=== PATIENT | male | born 1945 | race Caucasian/White ===

== ENCOUNTER → 2023-10-06 13:30 | Outpatient (REF) | payer OTHER, SELFPAY | LOC: MRI 3T 13:30 | PROVIDERS: ATTENDING PHYSICIAN Pain Medicine Interventional Pain Medicine; FAMILY PHYSICIAN Student in an Organized Health Care Education/Training Program | DX: M54.16 Radiculopathy, lumbar region (principal) | CPT/HCPCS: 72148 ==

== ENCOUNTER 2024-07-22 06:49 | Emergency (ER) | payer OTHER, SELFPAY ==
[2024-07-22 07:52] LABS: Hematocrit 41.1 % (39.0-52.0); Hemoglobin 15.1 g/dL (13.0-18.0); Mean Corp Hgb Conc. 36.7 g/dL (33.0-37.0); Mean Corpuscular Hgb 35.8 pg (27.0-31.0); Mean Corpuscular Volume 97.4 fL (80.0-94.0); Mean Platelet Volume 10.2 fL (7.4-10.4); Platelet Count 173 10^3/uL (130-400); Red Blood Cell Count 4.22 10^6/uL (4.70-6.10); Red Cell Dist. Width 12.1 % (11.5-14.5); White Blood Cell Count 8.9 10^3/uL (4.8-10.8)
[2024-07-22 08:11] LABS: ALT (SGPT) 22 U/L (0-50); AST (SGOT) 22 U/L (17-59); Albumin 4.2 g/dl (3.5-5.0); Alkaline Phosphatase 86 U/L (38-126); Blood Urea Nitrogen 19 mg/dl (9-20); Calcium 9.6 mg/dl (8.4-10.2); Carbon Dioxide 26 mmol/L (22-30); Chloride 103 mmol/L (98-107); Estimated Creatinine Clearance 91 ml/min; Glucose 175 mg/dl (70-99); Potassium 3.7 mmol/L (3.5-5.1); Sodium 139 mmol/L (135-145); Total Bilirubin 0.3 mg/dl (0.2-1.3); Total Protein 6.5 g/dl (6.3-8.2); eGFR > 60.00
[2024-07-22 08:18] LABS: NT-proBNP 518 pg/ml; Troponin I < 0.012 ng/ml
[2024-07-22] MEDS: APRESOLINE 50 MG PO (08:46)
[2024-07-22] MEDS: CARDIZEM CD 180 MG PO (08:46)
[2024-07-22 08:58] LABS: D-Dimer 0.51 ug/mlFEU (0.00-0.50)
--- NOTE | 2024-07-22 09:12 | ED.GENMED ---
History of Present Illness
General
Chief Complaint: Breathing Problem
Source: patient
Exam Limitations: none
Time Seen by Provider: 07/22/24 07:04
Nursing documentation reviewed up to this point in time: agreed with
History of Present Illness
History of Present Illness:
79-year-old male past medical history of hypertension presenting to the emergency department today with concerns of shortness of breath that he woke up with a few hours prior to arrival to the emergency department. Denies any chest pain numbness
weakness nausea vomiting any recent illnesses. Does have a history of smoking no specific history of COPD
Past History
Past History
ED Past Medical History: HTN and Other (Spinal stenosis with chronic back pain)
ED Past Surgical History: None
Patient has exhibited threatening behavior?: No
PSI?: No
Social History
Tobacco: Smoker
Alcohol: Occasional
Drug: Former user (Prescription narcotic drugs)
Living: alone
Family History
Family History: CAD and Other (Alcoholism)
Review of Systems
Review of Systems
Allergies reviewed?: Yes
All Other Systems: ROS reviewed and negative except as documented in HPI and ROS
Phy Exam
Physical Exam
Physical Exam:
GENERAL: Alert , in no apparent distress
EYE: pupils equal and reactive
NECK: Supple, no significant adenopathy.
ENT: o/p clr, mmm.
CARDIAC: Regular rate and rhythm .
LUNGS: Clear breath sounds bilaterally, no acute respiratory distress, no wheezes/rales/rhonchi
ABDOMEN: Soft, without focal tenderness, no r/g, no cvat
NEUROLOGICAL: Alert and oriented, no focal neuro deficits
SKIN: Warm and dry, skin intact.
MUSCULOSKELETAL: No edema, well perfused.
PSYCH: Normal and appropriate interaction.
Scores
Heart Failure Risk
Heart Failure Risk Score: Not Applicable
Course
Orders/Labs/Results
Orders:
Orders
07/22/24 07:02
EKG [Electrocardiogram (*1)] Urgent
Reason for Study: Shortness of Breath
EKG- Treatment ONCE
07/22/24 07:21
CR Chest - 2 Views Urgent
Comment:
Reason For Exam: sob
07/22/24 07:25
D-Dimer Urgent
07/22/24 07:33
BNP [NT-proBNP] Urgent
CMP [Comprehensive Metabolic Panel] Urgent
Complete Blood Count/No Diff Urgent
Troponin I Urgent
07/22/24 08:26
Diltiazem Extended Release [Cardizem Cd] 180 mg PO NOW STA
HydrALAZINE [Apresoline] 50 mg PO NOW STA
07/22/24 09:16
Ondansetron Injectable [Zofran] 4 mg IV NOW STA
07/22/24 09:39
EKG [Electrocardiogram (*1)] Urgent
Reason for Study: Palpitations
EKG- Treatment ONCE
07/22/24 09:50
Famotidine [Pepcid] 20 mg IV NOW STA
Mag Hydrox/Al Hydrox/Simeth [Maalox] 30 ml Phenobarb/Hyoscy/Atropine/Scop [] 10 ml PO NOW
Morphine Sulfate 8 mg IV NOW STA
07/22/24 10:13
Mag Hydrox/Al Hydrox/Simeth [Maalox] 30 ml .ROUTE .STK-MED ONE
Phenobarb/Hyoscy/Atropine/Scop [] 10 ml .ROUTE .STK-MED ONE
07/22/24 10:27
Troponin I Urgent
07/22/24 10:55
Vital Signs- Treatment ONCE
Frequency: Once
Abnormal Lab Results
07/22/24 07/22/24
07:25 07:33
RBC 4.22 L 10^6/uL
(4.70-6.10)
MCV 97.4 H fL
(80.0-94.0)
MCH 35.8 H pg
(27.0-31.0)
D-Dimer 0.51 H ug/mlFEU
(0.00-0.50)
Glucose 175 H mg/dl
(70-99)
07/22/24 07:33
07/22/24 07:33
Vital Signs
Initial and Last Documented VS:
Initial Vital Signs
Temp Pulse Resp BP Pulse Ox
97.3 F 66 20 116/85 99
07/22/24 06:51 07/22/24 06:51 07/22/24 06:51 07/22/24 06:51 07/22/24 06:51
Last Documented Vital Signs
Temp Pulse Resp BP Pulse Ox
97.4 F 74 20 167/62 98
07/22/24 11:52 07/22/24 11:52 07/22/24 11:52 07/22/24 11:52 07/22/24 11:52
MDM/Problems Addressed
MDM/Problems Addressed:
79-year-old male presenting to the emergency department today with concerns of shortness of breath started few hours prior to arrival. On arrival vital signs are normal patient slightly tachypneic but lungs are clear patient no distress otherwise.
EKG showing PACs but no emergent ischemic changes troponin negative chest x-ray without acute abnormalities D-dimer age-adjusted is normal labs unremarkable no specific explanation for patient's shortness of breath. Patient had complete resolution
of symptoms while here in the ER. Of note the patient's troponin level was drawn at least 3 hours after the onset of symptoms making ACS very unlikely and the troponin being reliable as a rule out for ACS. Patient did not have chest pain at any
point. While here the patient had some mild abdominal discomfort he was given Maalox and famotidine with complete resolution no reproducible abdominal pain at any point stable for outpatient management return precautions given.
*Critical Care Note
Total Time (30-74mins, 75-104mins- exclusive of procedures): Not Applicable
ED Attending Note
-
Portions of this chart may have been created with voice recognition software.� Occasional wrong word or��sound alike� substitutions may have occurred due to the inherent limitations of voice recognition software.
Discharge Plan
Departure
Patient Disposition: Home (Routine Discharge)
Date of Disposition: 07/22/24
Time of Disposition: 11:19
Patient with high blood pressure during this ER visit?: No
Condition: Good
Covid-19: Not Applicable
Discharge Problem:
Shortness of breath
Instructions: Shortness of Breath (Dyspnea) (DC)
Prescriptions:
No Action
latanoprost 0.005 % drops
1 drp BOTH EYES HS
cilostazol 50 mg tablet
50 mg PO BID
finasteride 1 mg tablet
1 mg PO DAILY
vitamin E 100 unit Capsule
45 mg PO DAILY
lansoprazole 15 mg Capsule,Delayed Release(Dr/Ec)
15 mg PO DAILY
ibuprofen [Motrin IB] 200 mg Tablet
400 mg PO Q8HPRN PRN (Reason: mild pain)
vitamin B complex Capsule
1 cap PO DAILY
wh-ynn-YQ-Dr-Xg-flgcyba-lutein 0.4-162-18 mg Tablet
1 tab PO DAILY
cholecalciferol (vitamin D3) [Vitamin D3] 25 mcg (1,000 unit) Tablet
25 mcg PO DAILY
omega 3-zge-pnl-fish oil [Fish Oil] 60-90-500 mg Capsule
1 cap PO DAILY
oxycodone [OxyContin] 10 mg tablet,oral only,ext.rel.12 hr
10 mg PO Q12 Qty: 30 0RF
oxycodone 5 mg capsule
5 mg PO QID PRN (Reason: Pain) Qty: 60 0RF
hydralazine 25 mg Tablet
50 mg PO BID 30 Days Qty: 120 0RF
Rx Instructions:
hold if Systolic blood pressure is less than 140
diltiazem HCl 180 mg Capsule,Extended Release 24hr
180 mg PO DAILY 30 Days Qty: 30 0RF
lisinopril 5 mg Tablet
5 mg PO HS 30 Days Qty: 30 0RF
oxycodone 10 mg tablet
10 mg PO Q6H Qty: 8 0RF
ondansetron HCl 4 mg tablet
4 mg PO Q8H PRN (Reason: nausea and vomiting) Qty: 14 0RF
Referrals:
Jayden Hillman, DO [Family Provider] -
Activity Restrictions/Additional Instructions:
You came to the emergency department today with concerns of shortness of breath. Here your reassuring assessment. Please follow closely with your primary care doctor within 1 to 2 weeks. Return to the emergency department any worsening, new or
concerning symptoms.
Interventions
Interventions:
*Risk Screen - Suicide Last Done: 07/22/24 06:51
*General Assessment Last Done: 07/22/24 07:16
*Neglect/Abuse Screening Last Done: 07/22/24 07:20
ED- Fall Risk Assessment Last Done: 07/22/24 07:16
*ED COVID-19 Vaccine History Last Done: 07/22/24 07:31
*Nursing Disposition Last Done: 07/22/24 11:52
ED- Cardiac Assessment Last Done: 07/22/24 07:16
ED- Pulmonary Assessment Last Done: 07/22/24 07:16
Discharge Date and Time
Discharge Date/Time: 07/22/24 11:53
Print Language: BERMUDIAN
[2024-07-22] MEDS: ZOFRAN 4 MG IV (09:19)
[2024-07-22] MEDS: MAALOX 40 PO (10:18)
[2024-07-22] MEDS: PEPCID 20 MG IV (10:19)
[2024-07-22] MEDS: MORPHINE SULFATE 8 MG IV (10:19)
[2024-07-22 11:11] LABS: Troponin I < 0.012 ng/ml
--- NOTE | 2024-07-22 11:51 | EDRN ---
Reviewed discharge instructions with patient. Verbalized understanding. Taken to lobby in wheelchair.
== END 2024-07-22 11:53 | disposition home or self-care (01) ==
LOC: EMR 06:49
PROVIDERS: Physician Assistant; EMERGENCY PHYSICIAN Emergency Medicine; FAMILY PHYSICIAN Student in an Organized Health Care Education/Training Program
DX: R06.02 Shortness of breath (principal); F17.200 Nicotine dependence, unspecified, uncomplicated
CPT/HCPCS: 99285; 96374; 96375 ×2; 71046; 80053; 83880; 84484; 85027; 85379; 93005

== ENCOUNTER → 2024-07-28 07:32 | Outpatient (REF) | payer OTHER, SELFPAY | LOC: RAD 07:32 | PROVIDERS: ATTENDING PHYSICIAN Surgery Vascular Surgery; FAMILY PHYSICIAN Student in an Organized Health Care Education/Training Program | DX: I73.9 Peripheral vascular disease, unspecified (principal) | CPT/HCPCS: 93922; 93925 ==

== ENCOUNTER 2024-08-08 14:09 | Emergency (ER) | payer OTHER, SELFPAY ==
[2024-08-08 14:36] VITALS: BP 220/82
[2024-08-08 15:09] LABS: % Basophils 0.3 % (0-2); % Eosinophils 0.1 % (0-6); % Immature Granulocytes 0.3 % (0-0.5); % Monocytes 2.5 % (1.7-9.3); % Neutrophils 95.8 % (42.2-75.2); Absolute Basophils 0.1 10^3/uL (0-0.2); Absolute Immature Granulocytes 0.1 10^3/uL (0-0.05); Absolute Lymphocytes 0.1 10^3/uL (1.2-3.4); Absolute Monocytes 0.4 10^3/uL (0.1-0.6); Absolute Neutrophils 13.9 10^3/uL (1.4-6.5); Hemoglobin 16.5 g/dL (13.0-18.0); Mean Corp Hgb Conc. 36.7 g/dL (33.0-37.0); Mean Corpuscular Hgb 35.3 pg (27.0-31.0); Mean Corpuscular Volume 96.2 fL (80.0-94.0); Mean Platelet Volume 10.4 fL (7.4-10.4); Nucleated Red Blood Cells % 0 % (-); Platelet Count 205 10^3/uL (130-400); Red Blood Cell Count 4.68 10^6/uL (4.70-6.10); Red Cell Dist. Width 11.9 % (11.5-14.5); White Blood Cell Count 14.5 10^3/uL (4.8-10.8)
[2024-08-08 15:22] LABS: ALT (SGPT) 26 U/L (0-50); AST (SGOT) 27 U/L (17-59); Albumin 4.7 g/dl (3.5-5.0); Alkaline Phosphatase 105 U/L (38-126); Blood Urea Nitrogen 21 mg/dl (9-20); Calcium 10.2 mg/dl (8.4-10.2); Carbon Dioxide 24 mmol/L (22-30); Chloride 100 mmol/L (98-107); Glucose 180 mg/dl (70-99); Lipase 56 U/L (23-300); Potassium 3.8 mmol/L (3.5-5.1); Sodium 136 mmol/L (135-145); Total Bilirubin 1.1 mg/dl (0.2-1.3); Total Protein 7.2 g/dl (6.3-8.2); eGFR > 60.00
--- NOTE | 2024-08-08 16:25 | ED.GENMED ---
History of Present Illness
General
Chief Complaint: Abdominal Symptoms
Source: patient and family
Time Seen by Provider: 08/08/24 16:13
History of Present Illness
History of Present Illness:
79-year-old male with past medical history of hypertension and chronic back pain presenting to the emergency department for evaluation of persistent nausea and vomiting all day today, family reports that he had some diarrhea about 3 days ago but
this is since resolved. No fevers or infectious symptoms but patient does endorse diffuse generalized abdominal pain currently a 10 out of 10. No relief with his chronic oxycodone and he did take a Pepto-Bismol earlier this morning but reports
vomiting this back up shortly thereafter. Family reports that patient is scheduled to have consultation with GI for an endoscopy at the end of August for chronic abdominal pain symptoms but due to the inability to tolerate p.o. today decided come
to the ER for further evaluation.
Past History
Past History
ED Past Medical History: HTN and Other (Spinal stenosis with chronic back pain)
ED Past Surgical History: None
Patient has exhibited threatening behavior?: No
PSI?: No
Social History
Tobacco: Smoker
Alcohol: Occasional
Drug: Former user (Prescription narcotic drugs)
Living: alone
Family History
Family History: CAD and Other (Alcoholism)
Review of Systems
Review of Systems
All Other Systems: ROS reviewed and negative except as documented in HPI and ROS
Phy Exam
Physical Exam
Physical Exam:
GENERAL: Alert , in no apparent distress but does appear uncomfortable
EYE: clear conjunctiva b/l
HEAD: NCAT
ENT: o/p clr, dry mucous membranes
CARDIAC: Regular rate and rhythm .
LUNGS: Clear breath sounds bilaterally, no acute respiratory distress, no wheezes/rales/rhonchi
ABDOMEN: Soft, generally tender but nothing focal, no r/g, no cvat, negative Verdin sign, no tenderness at McBurney's point
NEUROLOGICAL: Alert and oriented
SKIN: Warm and dry, skin intact.
MUSCULOSKELETAL: No edema, well perfused.
PSYCH: Normal and appropriate interaction.
Scores
Heart Failure Risk
Heart Failure Risk Score: Not Applicable
Heart Score for Chest Pain Patients
STEMI patient?: Not applicable
Withdrawal Assessment of Alcohol
Withdrawal Assessment Completed?: Not applicable
Course
Orders/Labs/Results
Orders:
Orders
08/08/24 14:51
Complete Blood Count/With Diff Urgent
Comprehensive Metabolic Panel Urgent
Lipase Urgent
08/08/24 16:24
0.9% Sodium Chloride 1000 ml [Nss] 1,000 ml IV BOLUS
Morphine Sulfate 4 mg IV NOW STA
Ondansetron Injectable [Zofran] 4 mg IV NOW STA
08/08/24 16:25
CT Abd/pelvis W Iv Cont Urgent
Comment:
Reason For Exam: generalized abd pain, vomiting
08/08/24 19:32
HYDROmorphone [Dilaudid] 0.5 mg IV NOW STA
Abnormal Lab Results
08/08/24
14:51
WBC 14.5 H 10^3/uL
(4.8-10.8)
RBC 4.68 L 10^6/uL
(4.70-6.10)
MCV 96.2 H fL
(80.0-94.0)
MCH 35.3 H pg
(27.0-31.0)
Abs Immat Gran (auto) 0.1 H 10^3/uL
(0-0.05)
Absolute Neuts (auto) 13.9 H 10^3/uL
(1.4-6.5)
Absolute Lymphs (auto) 0.1 L 10^3/uL
(1.2-3.4)
Neutrophils % 95.8 H %
(42.2-75.2)
Lymphocytes % 1.0 L %
(20.5-51.1)
BUN 21 H mg/dl
(9-20)
Glucose 180 H mg/dl
(70-99)
08/08/24 14:51
08/08/24 14:51
Vital Signs
Initial and Last Documented VS:
Initial Vital Signs
Temp Pulse Resp BP Pulse Ox
98.3 F 65 20 220/82 100
08/08/24 14:36 08/08/24 14:36 08/08/24 14:36 08/08/24 14:36 08/08/24 14:36
Last Documented Vital Signs
Temp Pulse Resp BP Pulse Ox
98.3 F 67 16 195/85 99
08/08/24 14:36 08/08/24 21:00 08/08/24 21:00 08/08/24 21:00 08/08/24 21:00
MDM/Problems Addressed
Differential Diagnosis Includes:
Appendicitis, cholecystitis, pancreatitis, gastritis/GERD, gastroenteritis, chronic pain syndrome/opiate withdrawal
MDM/Problems Addressed:
79-year-old male presenting the ER for evaluation of generalized abdominal pain with persistent nausea and vomiting. Unable to tolerate p.o. at home. Appears quite uncomfortable. Currently undergoing workup with GI for these chronic GI related
issues. No recent CT imaging of the abdomen or pelvis. Currently hypertensive. Labs done in triage show a leukocytosis of 14,000. Chemistry largely unremarkable. Will obtain CT scan for further evaluation. Pain control with morphine, Zofran
for nausea and IV fluids ordered.
*Radiology
Radiology exam reviewed: radiology read reviewed
*Pulse Oximetry
Patient hypoxic: no
*Critical Care Note
Total Time (30-74mins, 75-104mins- exclusive of procedures): Not Applicable
Data Reviewed
Review of Other/Old Records Reveals: Labs, Records and Radiology Studies
Source: patient, records and family
Comment
Comment:
6:23 PM: On reevaluation patient sleeping and noting symptoms are much improved. Awaiting CT imaging.
Patient Management
Social determinants of health affecting care: Living situation and Strong social support
Discussion with other providers: PCP and [facility] Hanger
Escalation/DeEscalation of care consider admission/obs:
Patient CT scan findings noted for gastritis which had a similar appearance to CT scan done in 2022. There was also an incidental finding of a pancreatic mass measuring about 12 mm. I provided the patient and family with printout of CAT scan
report and advised them that they would likely need further follow-up with CT imaging of the pancreas as well as a possible MRI. Other findings do not seem to be consistent with patient's presentation. Patient feeling much better following the
medications provided here and both he and family feel comfortable taking him home. Due to these findings and patient's follow-up not being for over 1 month I did notify the GI lockstitch front edge tape sewer staff as well as on-call GI provider and patient's primary
care provider about these findings to help expedite outpatient follow-up. Patient and family aware of return precautions to the ER.
ED Attending Note
-
Portions of this chart may have been created with voice recognition software.� Occasional wrong word or��sound alike� substitutions may have occurred due to the inherent limitations of voice recognition software.
Discharge Plan
Departure
Patient Disposition: Home (Routine Discharge)
Date of Disposition: 08/08/24
Time of Disposition: 20:54
Patient with high blood pressure during this ER visit?: Yes
Discharge Problem:
Abdominal pain, Nausea & vomiting, Gastritis, Pancreatic mass
Instructions: Abdominal Pain
Prescriptions:
New
sucralfate [Carafate] 100 mg/mL suspension
10 ml PO QID Qty: 1000 0RF
ondansetron 4 mg tablet,disintegrating
4 mg PO TIDPRN PRN (Reason: nausea/vomiting) Qty: 10 0RF
No Action
latanoprost 0.005 % drops
1 drp BOTH EYES HS
cilostazol 50 mg tablet
50 mg PO BID
finasteride 1 mg tablet
1 mg PO DAILY
vitamin E 100 unit Capsule
45 mg PO DAILY
lansoprazole 15 mg Capsule,Delayed Release(Dr/Ec)
15 mg PO DAILY
ibuprofen [Motrin IB] 200 mg Tablet
400 mg PO Q8HPRN PRN (Reason: mild pain)
vitamin B complex Capsule
1 cap PO DAILY
ce-byl-NN-Ir-Wg-szugoig-lutein 0.4-162-18 mg Tablet
1 tab PO DAILY
cholecalciferol (vitamin D3) [Vitamin D3] 25 mcg (1,000 unit) Tablet
25 mcg PO DAILY
omega 2-gay-otu-fish oil [Fish Oil] 60-90-500 mg Capsule
1 cap PO DAILY
oxycodone [OxyContin] 10 mg tablet,oral only,ext.rel.12 hr
10 mg PO Q12 Qty: 30 0RF
oxycodone 5 mg capsule
5 mg PO QID PRN (Reason: Pain) Qty: 60 0RF
hydralazine 25 mg Tablet
50 mg PO BID 30 Days Qty: 120 0RF
Rx Instructions:
hold if Systolic blood pressure is less than 140
diltiazem HCl 180 mg Capsule,Extended Release 24hr
180 mg PO DAILY 30 Days Qty: 30 0RF
lisinopril 5 mg Tablet
5 mg PO HS 30 Days Qty: 30 0RF
oxycodone 10 mg tablet
10 mg PO Q6H Qty: 8 0RF
ondansetron HCl 4 mg tablet
4 mg PO Q8H PRN (Reason: nausea and vomiting) Qty: 14 0RF
Referrals:
Jayden Hillman DO [Family Provider] -
Interventions
Interventions:
*Risk Screen - Suicide Last Done: 08/08/24 14:36
*General Assessment Last Done: 08/08/24 14:36
*Neglect/Abuse Screening Last Done: 08/08/24 14:36
ED- Fall Risk Assessment Last Done: 08/08/24 19:15
*Nursing Disposition Last Done: 08/08/24 21:07
GQ-Fcxqqi-Bhtcfdqcfe Assessment Last Done: 08/08/24 19:15
Discharge Date and Time
Print Language: LIBERIAN
[2024-08-08] MEDS: ZOFRAN 4 MG IV (16:44)
[2024-08-08] MEDS: NSS 1000 IV (16:44)
[2024-08-08] MEDS: MORPHINE SULFATE 4 MG IV (16:45)
[2024-08-08] MEDS: DILAUDID 0.5 MG IV (20:03)
[2024-08-08 21:00] VITALS: BP 195/85
== END 2024-08-08 21:07 | disposition home or self-care (01) ==
LOC: EMR 14:09
PROVIDERS: Emergency Medicine; EMERGENCY PHYSICIAN Student in an Organized Health Care Education/Training Program; FAMILY PHYSICIAN Student in an Organized Health Care Education/Training Program
DX: K29.70 Gastritis, unspecified, without bleeding (principal); K86.9 Disease of pancreas, unspecified; I10 Essential (primary) hypertension; F17.200 Nicotine dependence, unspecified, uncomplicated
CPT/HCPCS: 96374; 96375; 99284; 74177; 80053; 83690; 85025; Q9967

== ENCOUNTER → 2024-08-16 16:41 | Outpatient (REF) | payer OTHER, SELFPAY | LOC: MRI 3T 16:41 | PROVIDERS: ATTENDING PHYSICIAN Student in an Organized Health Care Education/Training Program | DX: K86.89 Other specified diseases of pancreas (principal) | CPT/HCPCS: 74183; A9575 ==

== ENCOUNTER 2024-08-18 06:24 | Day surgery (SDC) | payer OTHER, SELFPAY | END 2024-08-18 09:34 | disposition home or self-care (01) | LOC: GI 06:24 | PROVIDERS: ATTENDING PHYSICIAN Internal Medicine Gastroenterology; FAMILY PHYSICIAN Podiatrist Foot Surgery | DX: R12 Heartburn (principal); K22.89 Other specified disease of esophagus; K31.89 Other diseases of stomach and duodenum | CPT/HCPCS: 43239; 87220 ==

== ENCOUNTER 2024-08-26 09:29 | Outpatient (RCR) | payer OTHER, SELFPAY | END 2024-08-26 23:59 | disposition home or self-care (01) | LOC: ROT 09:29 | PROVIDERS: ATTENDING PHYSICIAN Student in an Organized Health Care Education/Training Program | DX: K86.89 Other specified diseases of pancreas (principal); R53.1 Weakness; Z73.6 Limitation of activities due to disability; R26.89 Other abnormalities of gait and mobility; R41.89 Other symptoms and signs involving cognitive functions and awareness | CPT/HCPCS: 88305; 88342; 97167 ==

== ENCOUNTER 2024-08-31 06:18 | Day surgery (SDC) | payer OTHER, SELFPAY | END 2024-08-31 14:14 | disposition home or self-care (01) | LOC: GI 06:18 | PROVIDERS: ATTENDING PHYSICIAN Internal Medicine Gastroenterology | DX: Z12.11 Encounter for screening for malignant neoplasm of colon (principal); K59.00 Constipation, unspecified; K64.8 Other hemorrhoids; K57.30 Diverticulosis of large intestine without perforation or abscess without bleeding; K63.5 Polyp of colon; R12 Heartburn; R11.2 Nausea with vomiting, unspecified; K31.89 Other diseases of stomach and duodenum | CPT/HCPCS: 45380; 43239; 88305; 88342 ==

== ENCOUNTER 2024-09-23 06:30 | Day surgery (SDC) | payer OTHER, SELFPAY ==
[2024-09-23] VITALS (9 sets, daily range): BP systolic 128–181; BP diastolic 71–92; BMI 23.3
--- NOTE | 2024-09-23 14:17 | SUR.PHASEI ---
1400: Pt. arrived to PACU tremulous, shaky, and restless. Pt. agitated and confused trying to hit staff. Pt. was given 50mcg of fent. by CHAPARRITA Alaniz and pt. seem to calm down. Pt. is a poor historian that reported to the nurse he had a drink last
night. Pt. also endorses taking 10mg of oxycodone at home four times a day for the past ten years for back pain. Patient Vitals are stable for patients normal limits. 1410: Pt. tremors have resolved and is not agitated any more, pt. is AAOx3 with no
complaints of nausea or pain. Pt. endorses that he hasnt had a ETOH drink in the last three years and that he feels similar to when he misses a dose of oxycodone. Pt. now HTN. MD Ceron contact for plan of care and disposition
== END 2024-09-23 15:37 | disposition home or self-care (01) ==
LOC: SDS 06:30
PROVIDERS: ATTENDING PHYSICIAN Internal Medicine Gastroenterology
DX: K86.89 Other specified diseases of pancreas (principal); K83.8 Other specified diseases of biliary tract
CPT/HCPCS: 43242; 88172; 88173; 88305; 88177; 88341; 88342

== ENCOUNTER → 2025-01-17 10:38 | Outpatient (REF) | payer OTHER, SELFPAY | LOC: RAD 10:38 | PROVIDERS: ATTENDING PHYSICIAN Surgery Vascular Surgery; FAMILY PHYSICIAN Student in an Organized Health Care Education/Training Program | DX: I73.9 Peripheral vascular disease, unspecified (principal) | CPT/HCPCS: 93922; 93925 ==

== ENCOUNTER 2025-02-03 07:48 | Day surgery (SDC) | payer OTHER, SELFPAY ==
[2025-02-03] VITALS (18 sets, daily range): BP systolic 132–186; BP diastolic 43–76; BMI 24.7
[2025-02-03] MEDS: NSS 500 IV (08:15)
[2025-02-03 08:25] LABS: Hematocrit 44.5 % (39.0-52.0); Hemoglobin 15.6 g/dL (13.0-18.0); Mean Corp Hgb Conc. 35.1 g/dL (33.0-37.0); Mean Corpuscular Volume 96.9 fL (80.0-94.0); Mean Platelet Volume 9.9 fL (7.4-10.4); Platelet Count 160 10^3/uL (130-400); Red Blood Cell Count 4.59 10^6/uL (4.70-6.10); Red Cell Dist. Width 13.1 % (11.5-14.5); White Blood Cell Count 7.8 10^3/uL (4.8-10.8)
[2025-02-03 08:35] LABS: INR 0.97; PT 13.2 Sec (11.4-14.6)
[2025-02-03 08:45] LABS: Blood Urea Nitrogen 18 mg/dl (9-20); Calcium 9.7 mg/dl (8.4-10.2); Carbon Dioxide 24 mmol/L (22-30); Chloride 110 mmol/L (98-107); Estimated Creatinine Clearance 62 ml/min; Glucose 134 mg/dl (70-99); Potassium 3.9 mmol/L (3.5-5.1); Sodium 141 mmol/L (135-145); eGFR > 60.00
--- NOTE | 2025-02-03 09:43 | W.SUR.PREOP ---
Pre-Operative Surgical Note
-
I have examined this patient prior to the performance of the scheduled procedure.
The patient's condition is unchanged from the time of the current History and
Physical and the patient is able to undergo the scheduled procedure.
--- NOTE | 2025-02-03 11:36 | W.SUR.POST ---
Surgical Immediate Post Op
Note
Pre Op Diagnosis: PAD
Post Op Diagnosis: Same
Procedure Performed: BL lower extremity diagnostic arteriogram
Primary Surgeon: Jose Francisco
Secondary Surgeons: Alvin PGY 5
Anesthesia: Local and sedation
Estimated Blood Loss: Less than 2 cc
Fluids: See anesthesia flowsheet
Drains/Shunts: None
Specimens/Cultures: None
Doppler/Duplex/Angio (Y/N): Y
Complications: None
Operative Findings: Unable to cross lesion, no endovascular option
[2025-02-03] MEDS: DILAUDID 0.5 MG IV ×2 (12:18→12:30)
[2025-02-03] MEDS: ASPIRIN 325 MG PO (13:30)
[2025-02-03] MEDS: NSS 1000 IV (13:30)
[2025-02-03] MEDS: ROXICODONE 10 MG PO (13:57)
--- NOTE | 2025-02-03 16:54 | OR.RPT ---
Operative Report
Operative Report
Date of Operation: 02/03/2025
Pre Op Diagnosis: Bilateral limb threatening ischemia with ischemic rest pain
Post Op Diagnosis: Bilateral limb threatening ischemia with ischemic rest pain
Procedure:
1.) Selective catheterization of third order lower extremity artery
2.) Diagnostic aortobiiliac arteriogram
3.) Diagnostic BILATERAL lower extremity arteriograms
4.) Ultrasound-guided percutaneous access to the left common femoral artery
Surgeon: Delvin Felton III, MD
[place] [employer] Laborer: Mikel Esquivel MD, PGY5
Anesthesia: Sedation with local
Fluoroscopy:
42.3 min
202 mGy
39.38 gy.cm2
Complications: None
Estimated Blood Loss: Less than 20 cc
History and Indications for Procedure: 79-year-old male with bilateral limb threatening ischemia manifested by ischemic rest pain in his feet, right greater than left
Procedure in Detail: Edgardo Gardiner was correctly identified and placed supine on the operating table. After adequate induction of anesthesia the bilateral groins were prepped and draped in the usual sterile fashion. A timeout was performed with the
nursing and anesthesia staff confirming the patient's identity as well as the nature and laterality of the procedure.
The left common femoral artery was identified under ultrasound guidance. The artery was patent. The superior and inferior aspects of the femoral head were identified with radiographic guidance and marked at the skin level. The proposed puncture site
was infiltrated with local anesthesia. Under ultrasound guidance we accessed the left common femoral artery with a micropuncture needle and upsized to a 5 Fr sheath over a Bentson wire. The wire and a ShepherInflaRx hook flush catheter were advanced into
the distal abdominal aorta and a diagnostic aorto-biiliac arteriogram was performed:
AORTO-ILIAC ARTERIOGRAM:
Aorta: Patent with no stenosis identified
Right common iliac artery: Patent with no stenosis identified
Right external iliac artery: Patent with no stenosis identified
Left common iliac artery: Patent with no stenosis identified
Left external iliac artery: Patent with no stenosis identified
Under roadmap guidance using a Glidewire and the ShepherInflaRx hook catheter we selected the right common iliac artery and then the external iliac artery. A catheter was tracked up and over the aortic bifurcation and placed in the distal external iliac
artery. A diagnostic right lower extremity arteriogram was then performed which demonstrated the following:
RIGHT LOWER EXTREMITY:
Common femoral artery: Patent with no stenosis identified
Profunda femoral artery: Patent with no stenosis identified
Superficial femoral artery: Very short patent stump, nearly flush occluded. Occluded thereafter.
Popliteal artery: Reconstitutes above the knee. Above-knee popliteal artery with calcified plaque but no significant stenosis identified. Patent behind and below the knee without significant stenosis
Anterior tibial artery: Occluded
Tibioperoneal trunk: Patent
Peroneal artery: Patent as the dominant tibial artery
Posterior tibial artery: Appears to have a high takeoff from the popliteal artery behind the knee. Sluggish flow compared to the peroneal artery. Appears to have distal occlusion proximal to the ankle.
Limited flow was identified on initial images into the foot.
ENDOVASCULAR INTERVENTION: Systemic heparin was administered. Exchanged out for a 6 Fr 45 cm sheath over a Storq wire. Selected the superficial femoral artery stump under roadmap guidance with a 0.014 Mongo wire Quickcross catheter and using this
approach we were able to navigate distally through the superficial femoral artery. I was able to advance the 0.014 system to the distal superficial femoral artery but met significant resistance distally. I then exchanged out for a 0.035 Quickcross
and 0.035 stiff Glidewire. I was able to advance further distally up to the point of reconstitution of the above-knee popliteal artery. Unfortunately I was not able to reenter into the true lumen. Multiple attempts were made using the 0.035
Quickcross along with a standard Glidewire as well as the stiff Glidewire. We also made attempts using the 0.014 system with multiple 0.014 wires but were completely unsuccessful at reentering the true lumen distally.
At this point I aborted additional attempts to cross the right SFA occlusion. The sheath tip was pulled back into the left external iliac artery. The sheath was secured in place with the plan to pull it in the recovery area. We performed a runoff
arteriogram of the left lower extremity which demonstrated the following:
LEFT LOWER EXTREMITY:
Common femoral artery: Patent with no significant stenosis identified
Profunda femoral artery: Patent with no significant stenosis identified. Robust collateral branches in the thigh
Superficial femoral artery: Very short stump of patent SFA but occluded thereafter.
Popliteal artery: Reconstitutes above the knee. Patent. Calcified plaque is present. Patent behind the knee and below the knee with no significant stenosis identified.
Anterior tibial artery: Patent
Tibioperoneal trunk: Patent
Peroneal artery: Patent
Posterior tibial artery: Patent but diffusely stenotic/diminutive throughout.
Satisfied with this diagnostic information we concluded the procedure.
The patient tolerated the procedure well and was taken to the recovery area in stable condition.
Attestation: I was present and responsible for the entire procedure.
Signed:
Delvin Felton III, MD
Vascular Surgery
[facility]
== END 2025-02-03 17:10 | disposition home or self-care (01) ==
LOC: CATH 07:48
PROVIDERS: ATTENDING PHYSICIAN Surgery Vascular Surgery; PRIMARYCARE PHYSICIAN Student in an Organized Health Care Education/Training Program
DX: I70.223 Atherosclerosis of native arteries of extremities with rest pain, bilateral legs (principal); Z87.891 Personal history of nicotine dependence; I10 Essential (primary) hypertension; G89.29 Other chronic pain
CPT/HCPCS: 36247; 75716; 75625; 80048; 85027; 85610; 85730; 93005; 93970; C1769; C1894; Q9967

== ENCOUNTER → 2025-03-13 11:36 | Outpatient (REF) | payer OTHER, SELFPAY | LOC: RCS 11:36 | PROVIDERS: ATTENDING PHYSICIAN Internal Medicine Cardiovascular Disease; FAMILY PHYSICIAN Student in an Organized Health Care Education/Training Program | DX: I45.10 Unspecified right bundle-branch block (principal) | CPT/HCPCS: 78452; 93017; A9500; J2785 ==

== ENCOUNTER → 2025-03-23 13:24 | Outpatient (REF) | payer OTHER, SELFPAY | LOC: RCS 13:24 | PROVIDERS: ATTENDING PHYSICIAN Internal Medicine Cardiovascular Disease; FAMILY PHYSICIAN Student in an Organized Health Care Education/Training Program | DX: I45.10 Unspecified right bundle-branch block (principal) | CPT/HCPCS: 93306 ==

== ENCOUNTER → 2025-03-30 11:04 | Outpatient (REF) | payer OTHER, SELFPAY | LOC: RAD 11:04 | PROVIDERS: ATTENDING PHYSICIAN Surgery Vascular Surgery; FAMILY PHYSICIAN Student in an Organized Health Care Education/Training Program | DX: I73.9 Peripheral vascular disease, unspecified (principal) | CPT/HCPCS: 93970 ==

== ENCOUNTER 2025-04-10 08:43 | Inpatient (IN) | payer OTHER, SELFPAY ==
[2025-03-30 10:10] VITALS: BMI 24.9
[2025-03-30 10:32] LABS: Hematocrit 44.5 % (39.0-52.0); Hemoglobin 15.1 g/dL (13.0-18.0); Mean Corp Hgb Conc. 33.9 g/dL (33.0-37.0); Mean Corpuscular Volume 98.9 fL (80.0-94.0); Nucleated Red Blood Cells % 0 % (-); Platelet Count 158 10^3/uL (130-400); Red Cell Dist. Width 12.7 % (11.5-14.5)
[2025-03-30 10:40] LABS: INR 0.96; PT 13.3 Sec (11.4-14.6)
[2025-03-30 10:41] LABS: APTT 25.2 Sec (23.4-35.0)
[2025-03-30 11:09] LABS: Blood Urea Nitrogen 21 mg/dl (9-20); Calcium 9.8 mg/dl (8.4-10.2); Carbon Dioxide 29 mmol/L (22-30); Chloride 101 mmol/L (98-107); Estimated Creatinine Clearance 64 ml/min; Glucose 127 mg/dl (70-99); Potassium 5.0 mmol/L (3.5-5.1); Sodium 140 mmol/L (135-145); eGFR > 60.00
[2025-04-10] VITALS (29 sets, daily range): BP systolic 100–169; BP diastolic 52–104; BMI 24.8; BMI 24.7
[2025-04-10] MEDS: BACTROBAN NASAL 1 GRAM NASAL (09:24)
[2025-04-10] MEDS: PERIDEX 0.12% ORAL RINSE 15 ML PO (09:24)
[2025-04-10] MEDS: NSS 500 IV (09:25)
[2025-04-10] MEDS: VANCOCIN 200 IV (10:10)
[2025-04-10 12:30] LABS: ACT-LR - POC 311 Seconds (116-155)
[2025-04-10 13:20] LABS: ACT-LR - POC 253 Seconds (116-155)
--- NOTE | 2025-04-10 14:17 | W.SUR.POST ---
Surgical Immediate Post Op
Note
Pre Op Diagnosis: PAD
Post Op Diagnosis: PAD
Procedure Performed: RLE Fem-Pop bypass
Primary Surgeon: Delvin Felton MD
Secondary Surgeons: Ben Doran MD PhD
Anesthesia: Per Anesthesia
Estimated Blood Loss: 50 cc
Fluids: Per Anesthesia
Drains/Shunts: None
Specimens/Cultures: None
Doppler/Duplex/Angio (Y/N): Doppler intact
Complications: None
Operative Findings: RLE common femoral to above knee popliteal bypass with graft (PTFE). Palpable PT pulse post-operatively.
[2025-04-10 14:19] LABS: Hematocrit 40.5 % (39.0-52.0); Hemoglobin 13.7 g/dL (13.0-18.0); Mean Corp Hgb Conc. 33.8 g/dL (33.0-37.0); Mean Corpuscular Volume 98.5 fL (80.0-94.0); Platelet Count 185 10^3/uL (130-400); Red Cell Dist. Width 12.6 % (11.5-14.5)
[2025-04-10] MEDS: DILAUDID 0.25 MG IV (14:32)
--- NOTE | 2025-04-10 14:41 | OR.RPT ---
Operative Report
Operative Report
Date of Operation: 04/10/2025
Pre Op Diagnosis: Debilitating right lower extremity claudication
Post Op Diagnosis: Debilitating right lower extremity claudication
Procedure: RIGHT common femoral artery to above-knee popliteal artery bypass with 6 mm ringed reinforced PTFE graft
Surgeon: Delvin Felton III, MD
Filter Cleaner: Ben Doran MD PhD PGY-7
Anesthesia: General
Complications: None
Estimated Blood Loss: 50 cc
History and Indications for Procedure: 79-year-old male with debilitating lower extremity claudication and failed attempt at endovascular intervention. He was brought to the operating room for open revascularization.
Procedure in Detail: Edgardo Gardiner was correctly identified and placed supine on the operating table. After adequate induction of anesthesia the abdomen, pelvis and right leg were prepped and draped in the usual sterile fashion. The patient received
preoperative antibiotics. A time out was performed with the nursing and anesthesia staff confirming the patient�s identity and the nature and laterality of the procedure.
A vertical incision was made over the right groin. Electrocautery and sharp dissection were used to expose the femoral vessels. Proximal control was obtained on the common femoral artery. Distal control was obtained around the proximal superficial
femoral artery and proximal profunda femoral artery.
A distal incision was made on the distal medial thigh. The above-knee popliteal artery was carefully exposed and proximal and distal control obtained with vessel loops.
A tunnel was created between the two incisions with a tunneling device.
A 6 mm ringed Propaten graft was brought through the tunnel, keeping the proper orientation with the blue dots on the graft.
Systemic heparin was administered.
Proximal and distal vessel loops were secured in the right groin. An arteriotomy was made on the common femoral artery with an 11-blade and extended proximally and distally with Blank scissors. The end of the graft was beveled and an end-to-side
anastomosis was created with a running CV 6 Novi-Srini suture. Following this the loops were removed. Hemostasis was achieved at the suture line. There was brisk pulsatile bleeding from the distal end of the graft. The graft was back flushed with
heparinized saline and a vascular clamp was applied to the graft just distal to the anastomosis.
I then secured the proximal and distal loops on the popliteal artery. An 11-blade was used to carefully make an arteriotomy. This was extended proximally and distally with Blank scissors. We flushed the distal artery with heparinized saline which
flushed easily. The graft was pressurized, shortened and beveled for the anastomosis. We sewed an end-to-side anastomosis to the popliteal artery with a running CV 6 Novi-Srini suture. Prior to the completion of the anastomosis we allowed the graft to
forward bleed and irrigated under the diallo with heparinized saline. The anastomosis was completed and we removed the proximal clamp on the graft as well as the vessel loops on the popliteal artery. Immediately there was a palpable pulse in the
popliteal artery. A palpable pulse was found in the posterior tibial artery at the ankle. Excellent quality Doppler signals were heard in the popliteal artery and posterior tibial artery which clearly augmented with compression and release of the
graft.
All suture lines were closely inspected and hemostasis achieved. Hemostasis was achieved in all wound beds. The wounds were irrigated with warm saline. Protamine was administered.
The incisions were closed in multiple layers and sterile ISHMAEL dressings applied
The patient was extubated and brought to the PACU in stable condition after tolerating the procedure quite well.
Attestation: I was present and responsible for the entire procedure
Signed:
Delvin Felton III, MD
Vascular Surgery
[facility]
[2025-04-10] MEDS: APRESOLINE 10 MG IV (14:49)
[2025-04-10 15:05] LABS: Blood Urea Nitrogen 22 mg/dl (9-20); Calcium 8.7 mg/dl (8.4-10.2); Carbon Dioxide 23 mmol/L (22-30); Chloride 105 mmol/L (98-107); Estimated Creatinine Clearance 71 ml/min; Glucose 164 mg/dl (70-99); Potassium 4.6 mmol/L (3.5-5.1); Sodium 136 mmol/L (135-145); eGFR > 60.00
[2025-04-10] MEDS: NSS 1000 IV (16:02)
[2025-04-10] MEDS: ZESTRIL 10 MG PO (16:12)
[2025-04-10] MEDS: TYLENOL 650 MG PO ×2 (16:12→19:49)
--- NOTE | 2025-04-10 16:24 | CON.INTV ---
Consultation
Consultation Request
Date/Time Consultation Requested: 04/10/2025
Date/Time Consultation Performed: 04/10/2025
Medical History
-
History of Present Illness:
Patient is a very pleasant 79-year-old gentleman with known history of peripheral vascular disease and claudication of lower limbs. Patient has been following up with vascular surgery in outpatient and today was scheduled for revascularization.
Postprocedure, patient was admitted to the ICU and biochemistry technician consultation was requested for further input.
Past medical history, chronic back pain, history of pancreatic lesion, s/p biopsy suggestive of intrapancreatic spleen, peripheral vascular disease, history of claudication, hypertension, hyperlipidemi, GERD with chronic gastritis. Chronic opioid
use for back pain.
Social history. Patient smoked half pack per day from age 27 until 79. He quit 6 months ago. Currently not using any tobacco products.
Allergies / Home Medications
Allergies
Allergy/AdvReac Type Severity Reaction Status Date / Time
cat dander Allergy congestion/ Verified 04/10/25 09:06
itching
Penicillins Allergy Rash, Verified 04/10/25 09:06
tolerated
amoxicillin
in 2022
pollen extracts Allergy seasonal Verified 04/10/25 09:06
allergies
Home Medications
�Medication �Instructions �Recorded �Confirmed �Last Taken �Type
diltiazem HCl 180 mg 180 mg PO DAILY 09/23/24 04/10/25 04/07/25 22:30 History
tablet,extended release 24 hr
(Matzim [place])
famotidine 40 mg tablet 40 mg PO HS 09/23/24 04/10/25 04/07/25 07:30 History
finasteride 1 mg tablet 1 mg PO DAILY 09/23/24 04/10/25 04/09/25 22:30 History
hydralazine 25 mg tablet 25 mg PO DAILY PRN sbp >140 09/23/24 04/10/25 04/09/25 22:30 History
latanoprost 0.005 % eye drops 1 drp ophthalmic (eye) DAILY 09/23/24 04/10/25 04/09/25 22:30 History
lisinopril 10 mg tablet 10 mg PO DAILY 09/23/24 04/10/25 04/07/25 07:30 History
oxycodone 10 mg tablet 10 mg PO Q6H PRN pain 09/23/24 04/10/25 04/09/25 22:30 History
Nutra-Hair 1 cap PO DAILY 02/01/25 04/10/25 2 Weeks Ago History
~01/20/25
rosuvastatin 5 mg tablet 5 mg PO DAILY 02/01/25 04/10/25 04/09/25 22:30 History
sucralfate 1 gram tablet 1 g PO ACHS 02/03/25 04/10/25 02/03/25 06:00 History
multivitamin 1 tab PO DAILY 03/29/25 04/10/25 Unknown History
omeprazole magnesium 20 mg 40 mg PO DAILY 03/29/25 04/10/25 04/09/25 22:30 History
tablet,delayed release (Prilosec
OTC)
trazodone 50 mg tablet 50 mg PO HS 03/29/25 04/10/25 Unknown History
Review of Systems
-
Hematologic/Lymphatic: Other (All 14 systems reviewed and negative except as stated above in the history of present illness.)
Vitals / Labs / Diagnostic Testing
Vital Signs
Temp Pulse Resp BP Pulse Ox
97.4 F 77 15 163/51 100
04/10/25 15:20 04/10/25 16:12 04/10/25 15:00 04/10/25 16:12 04/10/25 15:20
Lab Data
04/10/25 14:13
04/10/25 14:13
Diagnostic Testing:
Physical Exam
-
HEENT: Normocephalic
Cardiovascular: S1/S2
Respiratory: Clear
GI: Soft and Non Distended
Neurology: Awake and Alert
Skin: Warm
General: Comfortable
Assessment
-
Patient is 79-year-old gentleman with severe peripheral vascular disease s/p right common femoral artery to above-knee popliteal artery bypass graft by vascular surgery service, POD #0
Continue observation following procedure
Follow neurovascular checks per protocol
ASA, rosuvastatin. Also on Cardizem CD, 180 mg daily.
Follow BP monitoring and parameters as set by primary team
Cardiac history reviewed
Monitor on telemetry
Pain control per protocol
RASS goal 0
No prior history of pulmonary disease, has 25 pack year smoking history
CXR reviewed indicating no acute disease
No prior PFTs for review
Encouraged IS
Diet advancement per protocol
Aspiration precautions
GI prophylaxis: Has been on omeprazole and famotidine.
Cr at baseline, follow UO
Critical I/Os
Void trials
Replete electrolytes as needed
No signs/symptoms suspicious for infectious etiology at this time
Will observe off antibiotics for now
Follow temperatures/CBC
DVT prophylaxis: Subcu heparin.
Other medical diagnoses:
- Hypertension, hyperlipidemia
- Chronic right bundle branch block
- Renal artery stenosis
- Chronic back pain
- H/o smoking. [id number]-gbwd smoking history. Quit 6 months ago. No cough, wheezing, shortness of breath or known diagnosis of COPD or emphysema. We discussed regarding low-dose CT scan for lung cancer screening. Patient plans to follow-up with
his primary care provider for additional screening. No wheezing on exam, hold off on inhaler therapy for now.
Critical Care time [55] mins -- The patient is admitted for acute critical illness for the treatment of vital organ failure and/or prevention of further life-threatening conditions. Total care includes time spent in review of history, physical exam,
medications, hemodynamic/ventilator parameters, laboratory data, imaging and discussion with house staff, pharmacy, respiratory therapy, sign painter helper, and nursing
Data:
CXR 03/2025: Unremarkable
ECHO 03/2025: 1. Normal left ventricular size and function, EF 70%.
2. Mildly thickened mitral leaflets with mitral annular calcification and trace mitral regurgitation.
3. Aortic sclerosis without stenosis or regurgitation.
4. Normal right heart, pulmonary artery systolic pressure is 32 mmHg.
5. There are no prior studies for comparison.
Lexiscan 02/2025: Negative Lexiscan sestamibi for ischemia.
Intermediate risk stress test for ischemia due to use of Lexiscan.
Fixed apical inferior and apical defect consistent with soft tissue attenuation.
Indeterminate ECG for ischemia given the pharmacological study.
Systolic function is normal. The ejection fraction is 69%.
[2025-04-10] MEDS: ROXICODONE 5 MG PO (17:07)
[2025-04-10] MEDS: CARAFATE 1 GRAM PO ×2 (17:07→22:04)
[2025-04-10] MEDS: HEPARIN 5000 UNITS SC ×2 (17:08→23:26)
--- NOTE | 2025-04-10 18:07 | PTCARENOTE ---
Updated assessment, vital signs ongoing and as documented. Follow up doppler pedals DP/PT on right as noted. Dressings remain clean dry intact with Chula dressings. Continue IVF and critical input output thru shift. Tolerates po intake advance diet
as ordered. Bed rest for post op day. PT/OT to evaluate in am. Family expressing concerns with therapy needs upon discharge (concerns with steps and house/apartment environment.) Initiate incentive spirometer teaching and demo. Continue pain
management and follow up via pharmacy. Update with vascular team and driller's offsider.
--- NOTE | 2025-04-10 19:30 | PTCARENOTE ---
Patient received lying in bed, awake, alert and oriented, watching TV and visiting with family. See operational risk analyst charted on worklist flowsheet. Jacklyn right radial artery leveled and zeroed with good waveform, good square wave. Cuff pressure does
not correlate, SBP 30mmg Hg less on cuff pressure. Hourly neurovascular checks RLE, doppler pulses, RLE warm, pink and dry. LLE pale, W&D, doppler pulses. S1S2 with positive murmur, SR with 1st degree AVB and BBB. BBS clear. C/o lower back pain and
right foot pain. Chronic lower back pain, see MAR for prn pain medication given. RLE groin dressing CDI, ISHMAEL drain with green light. Right medial knee dressing CDI with ISHMAEL drain with green light. Patient instructed regarding bedrest. Family
arrranged for dinner since patient dinner order did not go through. Ate 100%, tolerated well. Bed in low and locked position, call warren in reach.
[2025-04-10] MEDS: CARDENE 200 IV (20:19)
[2025-04-10] MEDS: ROXICODONE 10 MG PO (21:00)
[2025-04-10] MEDS: PEPCID 40 MG PO (22:04)
[2025-04-10] MEDS: DESYREL 50 MG PO (23:26)
--- NOTE | 2025-04-10 23:30 | PTCARENOTE ---
Patient dozing off/on intermittently. Sats 96% on RA. Off Cardene gtt since 2254, Jacklyn BP stable 130s/40s, MAP 64. Respirations non labored. Rouses easily to name called. RLE dressings CDI with ISHMAEL drains x 2 with green light. Oral care. Pain
controlled. No noted change in physical assessment. Bed alarm on.
[2025-04-11] VITALS (20 sets, daily range): BP systolic 105–176; BP diastolic 54–111; PULSE 65; BMI 25.2
[2025-04-11] MEDS: ROXICODONE 10 MG PO ×4 (00:49→22:52)
[2025-04-11] MEDS: TYLENOL PO ×5 (02:57→23:55)
[2025-04-11] MEDS: NSS 1000 IV (03:01)
--- NOTE | 2025-04-11 04:15 | PTCARENOTE ---
[place] waveform is poor. Unable to recover with repositioning and flushing. Patient appears to be sleeping comfortably. Rouses easily. [place] discontinued and manual pressure held for 5 minutes, no further evidence of bleeding, pressure dressing
donned. Patient fell asleep during Jacklyn discontinuation/manual pressure. Pulses palpable RLE but weak. BBS remain clear. Cuff pressure stable. Patient acknowledges pain is controlled. Repositions self in bed. Am labs drawn. No other change in
patient physical assessment.
[2025-04-11 04:28] LABS: Hematocrit 34.3 % (39.0-52.0); Hemoglobin 11.9 g/dL (13.0-18.0); Mean Corp Hgb Conc. 34.7 g/dL (33.0-37.0); Mean Corpuscular Volume 97.2 fL (80.0-94.0); Platelet Count 142 10^3/uL (130-400); Red Cell Dist. Width 12.7 % (11.5-14.5)
[2025-04-11 04:38] LABS: INR 1.16; PT 15.2 Sec (11.4-14.6)
[2025-04-11 04:39] LABS: APTT 25.1 Sec (23.4-35.0)
[2025-04-11 04:48] LABS: Blood Urea Nitrogen 21 mg/dl (9-20); Calcium 8.3 mg/dl (8.4-10.2); Carbon Dioxide 24 mmol/L (22-30); Chloride 110 mmol/L (98-107); Estimated Creatinine Clearance 80 ml/min; Glucose 174 mg/dl (70-99); Potassium 4.3 mmol/L (3.5-5.1); Sodium 139 mmol/L (135-145); eGFR > 60.00
--- NOTE | 2025-04-11 07:04 | PTCARENOTE ---
Report given verbally to oncoming shift, Uday MORRIS. Questions answered. Dr Felton made aware of failed Jacklyn
[2025-04-11] MEDS: ZESTRIL 10 MG PO (07:09)
[2025-04-11] MEDS: CARAFATE 1 GRAM PO ×4 (07:09→22:52)
[2025-04-11] MEDS: TYLENOL 650 MG PO ×4 (07:09→19:49)
[2025-04-11] MEDS: PROTONIX 40 MG PO (07:09)
[2025-04-11] MEDS: THERAGRAN 1 TABLET PO (07:10)
[2025-04-11] MEDS: CARDIZEM CD 180 MG PO (07:11)
[2025-04-11] MEDS: LOW STRENGTH ASPIRIN 81 MG PO (07:11)
[2025-04-11] MEDS: CRESTOR 5 MG PO (07:12)
[2025-04-11] MEDS: HEPARIN 5000 UNITS SC (07:12)
[2025-04-11] MEDS: XALATAN OPHTHALMIC SOLUTION 1 DROP BOTH EYES (07:14)
--- NOTE | 2025-04-11 07:44 | W.PN.VS ---
Today's Communication / Plan
-
Below plan reviewed with attending Dr. Delvin Felton III
Assessment/Plan
-
Assessment: 79-year-old male POD #1 RIGHT common femoral artery to above-knee popliteal artery bypass with 6 mm ringed reinforced PTFE graft
Plan:
Arterial line malfunctioning overnight and already discontinued, continue to surveillance for hypertension
Discontinue IV fluids
Discontinue Felton catheter
Out of bed to chair with progression ambulation as tolerated
PT
Encourage incentive spirometry
AM fasting glucose on morning labs noted to be elevated will obtain A1c
Subjective Data
-
Date of Service: April 11, 2025
Patient seen examined at bedside offers no complaints. Endorses postoperative pain is well-managed. Tolerating p.o. diet.
Objective Data
-
Vital Signs
Temp Pulse Resp BP Pulse Ox
98.7 F 64 26 162/68 97
04/10/25 19:30 04/11/25 07:11 04/11/25 04:00 04/11/25 07:11 04/11/25 04:00
Intake and Output
04/10/25 04/11/25 04/12/25
06:59 06:59 06:59
Intake Total 1768.75 / 1768.75
Output Total 2640 / 2640
Balance -871.25 / -871.25
Intake:
Oral fluids 660 / 660
IV fluids (Total) 1108.75 / 1108.75
Cardene gtt 68.75 / 68.75
Nss 1,000 ml @ 80 mls/hr IV . 1040 / 1040
[id number] [id number] Rx#:[id number]
Output:
Urine, Felton 2640 / 2640
Lab Results
04/11/25 04:09
04/11/25 04:09
Calcium 8.3 mg/dl (8.4-10.2) L 04/11/25 04:09
Physical Exam
-
No apparent distress, resting in bed comfortably
No tachycardia
No dyspnea on room air
ABD flat, nondistended, nontender
Right lower extremity Chula dressing clean, dry, and, intact, all compartments soft, no evidence of hematoma, Doppler DP signal, right foot warm
Felton draining clear yellow urine
[2025-04-11 08:41] LABS: Glycohemoglobin (HgbA1c) 5.5 % (4.0-5.6)
--- NOTE | 2025-04-11 10:19 | PTCARENOTE ---
Update with vascular surgery this am. Reid patient and review with pt/ot plan of cares. Arterial line out earlier, and wright out now. Advance activity and diet as tolerated. Patient with visitor this am. Continue vascular checks and mobility plan
of cares. Vital signs improved bp post am medications presently 130/60 continue follow up trends. POD # 1 teaching continues, pain management and incentive spirometer ongoing.
--- NOTE | 2025-04-11 12:09 | CM ---
Spoke with patient's daughter to obtain information for assessment. Patient's daughter stated that patient, Wayne' lives alone in a 2nd floor apartment with about 13 steps to enter. She described him as independent with all of his ADLs, personal
care, bathing and dressing. 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 He drives and can get to his appointments and does all of his own shopping. Patient's daughter stated that patient was going to the gym and playing golf often. He
has no DME. He has not had VN in the past. He has never been to a SNF.
Patient has a prescription plan and uses, [facility] in [place] for all of his medications.
Patient's PCP Jayden Riley.
Patient's daughter is concerned about patient returning right home as he has a lot of steps to navigate and he lives by himself. She stated that all of his children are supportive however she feels that it would be best for him to have rehab prior
to returning back to the community.
Plan: Case management will continue to follow and assist discharge planning. Patient's family would like SNF after discharge.
--- NOTE | 2025-04-11 12:17 | PTCARENOTE ---
Patient ambulating with physical therapy team. Walker, assist tolerating well. Continue follow up vital sign and assessment trends. Lunch at this time, out of bed to chair with family at bedside. Continue with update. Assessment continued
improvement. Follow up questions answered, ongoing vascular trends.
--- NOTE | 2025-04-11 15:05 | W.PN.INTV ---
Today's Communication / Plan
Recommendations
- Patient stable for transferring out of ICU
- Factory Maintenance Technician service will sign off, please call as needed
Assessment
-
Patient is a very pleasant 79-year-old gentleman with known history of peripheral vascular disease and claudication of lower limbs. Patient has been following up with vascular surgery in outpatient and today was scheduled for revascularization.
Postprocedure, patient was admitted to the ICU and commercial credit reviewer consultation was requested for further input.
Patient is 79-year-old gentleman with severe peripheral vascular disease s/p right common femoral artery to above-knee popliteal artery bypass graft by vascular surgery service, POD #1
Continue observation following procedure
Follow neurovascular checks per protocol
ASA, rosuvastatin. Also on Cardizem CD, 180 mg daily. Xarelto resumed.
Follow BP monitoring and parameters as set by primary team
Cardiac history reviewed
Monitor on telemetry
Pain control per protocol
RASS goal 0
No prior history of pulmonary disease, has 25 pack year smoking history
CXR reviewed indicating no acute disease
No prior PFTs for review
Encouraged IS
Diet advancement per protocol
Aspiration precautions
GI prophylaxis: Has been on omeprazole and famotidine.
Cr at baseline, follow UO
Critical I/Os
Void trials
Replete electrolytes as needed
No signs/symptoms suspicious for infectious etiology at this time
Will observe off antibiotics for now
Follow temperatures/CBC
DVT prophylaxis: Xarelto initiated.
Other medical diagnoses:
- Hypertension, hyperlipidemia
- Chronic right bundle branch block
- Renal artery stenosis
- Chronic back pain
- H/o smoking. 90-qgsq-[id number] smoking history. Quit 6 months ago. No cough, wheezing, shortness of breath or known diagnosis of COPD or emphysema. 04/10, we discussed regarding low-dose CT scan for lung cancer screening. Patient plans to
follow-up with his primary care provider for additional screening. No wheezing on exam, hold off on inhaler therapy for now.
Critical Care time [38] mins -- The patient is admitted for acute critical illness for the treatment of vital organ failure and/or prevention of further life-threatening conditions. Total care includes time spent in review of history, physical exam,
medications, hemodynamic/ventilator parameters, laboratory data, imaging and discussion with house staff, pharmacy, respiratory therapy, it analyst, and nursing
Data:
CXR 03/2025: Unremarkable
ECHO 03/2025: 1. Normal left ventricular size and function, EF 70%.
2. Mildly thickened mitral leaflets with mitral annular calcification and trace mitral regurgitation.
3. Aortic sclerosis without stenosis or regurgitation.
4. Normal right heart, pulmonary artery systolic pressure is 32 mmHg.
5. There are no prior studies for comparison.
Lexiscan 02/2025: Negative Lexiscan sestamibi for ischemia.
Intermediate risk stress test for ischemia due to use of Lexiscan.
Fixed apical inferior and apical defect consistent with soft tissue attenuation.
Indeterminate ECG for ischemia given the pharmacological study.
Systolic function is normal. The ejection fraction is 69%.
Subjective Dataa
Subjective Data
Date of Service:
Date of Service: April 11, 2025
Subjective:
Patient comfortably lying in bed in no acute distress.
Review of Systems
Genitourinary: Other (All 14 systems reviewed and negative except as stated above in the history of present illness.)
Objective Data
Data Reviewed
Vital Signs / I&O / Oxygen:
Vital Signs
Temp Pulse Resp BP Pulse Ox
98.5 F 64 20 155/54 98
04/11/25 12:07 04/11/25 14:34 04/11/25 14:34 04/11/25 14:34 04/11/25 14:34
Intake and Output
04/10/25 04/11/25 04/12/25
06:59 06:59 06:59
Intake Total 1768.75 / 2168.75 1460 / 1460
Output Total 2640 / 2740 300 / 300
Balance -871.25 / -571.25 1160 / 1160
SaO2 98
Nasal Cannula flow liters per 2
minute
Physical Exam
General: Comfortable
HEENT: Normocephalic
Cardiovascular: S1-S2
Respiratory: Clear
GI: Soft and Non Distended
Neurology: Awake and Alert
Skin: Warm
Labs/Micro/Reports
Lab Data
04/11/25 04:09
04/11/25 04:09
Laboratory Results
04/11/25
04:09
PT 15.2 H
INR 1.16
APTT 25.1
[2025-04-11] MEDS: XARELTO 2.5 MG PO (19:49)
[2025-04-11] MEDS: PEPCID 40 MG PO (22:52)
[2025-04-11] MEDS: DESYREL 50 MG PO (22:52)
--- NOTE | 2025-04-11 23:00 | PTCARENOTE ---
Assisted back to bed. No change in patient's physical assessment. Takes po meds without difficulty. Medicated for pain. VSS.
--- NOTE | 2025-04-11 23:57 | PTCARENOTE ---
Addendum entered by Natasha Deng RN 04/12/25 05:34:
This note was for start of shift at 1999.
Original Note:
Patient received sitting up in the chair, awake, alert, and oriented watching TV. He currently denies CP, SOB, N/V. He c/o lower back pain 5/10 but tolerable and right great toe pain that is mild. See curriculum and assessment coordinator charted on worklist flowsheet. BBS
clear. Afebrile. VSS, SBP slightly elevated but patient is watching the [employer] game. No edema. Pulses BLE weak on palpation, audible with doppler. RLE dressings x 2 CDI, ISHMAEL drains with green lights blinking. SR with BBB on CM with frequent
pac's, bigeminy pac's. BRP independently, gait steady, tolerates well. Call light within reach.
[2025-04-12] VITALS (14 sets, daily range): BP systolic 94–178; BP diastolic 37–80; PULSE 62; BMI 25.0
[2025-04-12] MEDS: TYLENOL 650 MG PO ×6 (05:17→23:13)
[2025-04-12] MEDS: ROXICODONE 10 MG PO ×2 (05:17→17:50)
[2025-04-12 06:46] LABS: Hematocrit 36.5 % (39.0-52.0); Hemoglobin 12.4 g/dL (13.0-18.0); Mean Corp Hgb Conc. 34.0 g/dL (33.0-37.0); Mean Corpuscular Volume 98.9 fL (80.0-94.0); Platelet Count 146 10^3/uL (130-400); Red Cell Dist. Width 12.7 % (11.5-14.5)
[2025-04-12 06:59] LABS: Blood Urea Nitrogen 19 mg/dl (9-20); Calcium 8.7 mg/dl (8.4-10.2); Carbon Dioxide 27 mmol/L (22-30); Chloride 109 mmol/L (98-107); Estimated Creatinine Clearance 91 ml/min; Glucose 108 mg/dl (70-99); Potassium 4.7 mmol/L (3.5-5.1); Sodium 138 mmol/L (135-145); eGFR > 60.00
--- NOTE | 2025-04-12 07:14 | PTCARENOTE ---
Report given verbally to oncoming Uday shearer RN. Questions answered.
[2025-04-12] MEDS: CRESTOR 5 MG PO (08:21)
[2025-04-12] MEDS: ZESTRIL 10 MG PO (08:21)
[2025-04-12] MEDS: XALATAN OPHTHALMIC SOLUTION 1 DROP BOTH EYES (08:21)
[2025-04-12] MEDS: CARAFATE 1 GRAM PO ×4 (08:21→20:56)
[2025-04-12] MEDS: LOW STRENGTH ASPIRIN 81 MG PO (08:22)
[2025-04-12] MEDS: XARELTO 2.5 MG PO ×2 (08:22→20:56)
[2025-04-12] MEDS: THERAGRAN 1 TABLET PO (08:22)
[2025-04-12] MEDS: PROTONIX 40 MG PO (08:22)
--- NOTE | 2025-04-12 08:38 | W.PN.VS ---
Addendum entered and electronically signed by Iker Patrick MD 04/13/25 07:57:
Seen and examined yesterday with DRY CLEANING COUNTER CLERK. This is a late entry. I agree with findings and plan as discussed and noted below.
Original Note:
Today's Communication / Plan
-
Patient seen and examined bedside with Dr. Iker Patrick M.D., below plan reviewed with attending
Assessment/Plan
-
Assessment: 79-year-old male POD #2 RIGHT common femoral artery to above-knee popliteal artery bypass with 6 mm ringed reinforced PTFE graft
Plan:
Out of bed to chair with progression ambulation as tolerated
PT, asked to reevaluate with focus on steps given patient has multiple stairs in order to get into his apartment
Encourage incentive spirometry
Case management for disposition planning
[facility] protocol of Xarelto 2.5 mg p.o. twice daily with aspirin 81 mg p.o. daily
Possible discharge to home versus SNF/rehab
Subjective Data
-
Date of Service: April 12, 2025
Patient seen and examined at bedside, offers no complaints. Reports well-managed postoperative pain. Tolerating ambulation with assist of rolling walker.
Objective Data
-
Vital Signs
Temp Pulse Resp BP Pulse Ox
97.7 F 60 20 166/70 99
04/12/25 07:26 04/12/25 08:21 04/12/25 08:00 04/12/25 08:21 04/12/25 08:00
Intake and Output
04/11/25 04/12/25 04/13/25
06:59 06:59 06:59
Intake Total 1768.75 / 2168.75 2059 60 60
Output Total 2640 / 2740 300 / 300
Balance -871.25 / -571.25 1759 / 1759 60 / 60
Intake:
Oral fluids 660 / 980 1979 60 / 60
IV fluids (Total) 1108.75 / 1188.75 80 / 80
Cardene gtt 68.75 / 68.75
Nss 1,000 ml @ 80 mls/hr IV . 1040 / 1120 80 / 80
[id number] [facility] Rx#:[id number]
Output:
Urine, Felton 2640 / 2740 300 / 300
Other:
Number of approximated MODERATE 1
amounts of urine
Number of approximated LARGE 1
amounts of urine
Lab Results
04/12/25 06:17
04/12/25 06:17
Calcium 8.7 mg/dl (8.4-10.2) 04/12/25 06:17
Physical Exam
-
No apparent distress, resting in bed comfortably
No tachycardia
No dyspnea on room air
ABD flat, nondistended, nontender
Right lower extremity Chula dressing clean, dry, and, intact, all compartments soft, no evidence of hematoma, Doppler DP signal, right foot warm
--- NOTE | 2025-04-12 08:38 | PTCARENOTE ---
Updated assessment, vital signs ongoing and as documented. Follow up bedside with vascular team. Working toward discharge and follow up plan of cares. PT/OT evaluate again (stairs) and continue follow up mobility plan of cares. Update with family
via phone. Continue teaching and follow up patient care needs. Breakfast ordered at this time.
[2025-04-12] MEDS: CARDIZEM CD PO (09:15)
--- NOTE | 2025-04-12 10:25 | PTCARENOTE ---
Patient continues to work with pt/ot at bedside, will follow up their evaluation with surgery. Continue with teaching and vital sign trends.
--- NOTE | 2025-04-12 12:50 | PTCARENOTE ---
Update with vascular team, continue follow up rounds and plan of cares. Update pt/ot follow up this am. Await to update family on follow up rounds continue with discharge teaching and therapy follow up. Supportive cares ongoing.
--- NOTE | 2025-04-12 15:52 | PTCARENOTE ---
Ambulation and mobility practice ongoing. Patient ambulates room, bathroom freely with no difficulties. Pain continues to be well managed. PAtient doing research with his insurance company for blood thinner coverage. Will follow up teaching with
patient and daughter.
[2025-04-12] MEDS: PEPCID 40 MG PO (20:56)
[2025-04-12] MEDS: DESYREL 50 MG PO (20:56)
[2025-04-12] MEDS: ROXICODONE 5 MG PO (23:13)
[2025-04-13 03:22] VITALS: BP 126/89
[2025-04-13] MEDS: TYLENOL PO ×2 (03:43→12:31)
[2025-04-13 07:32] VITALS: BP 147/71
[2025-04-13] MEDS: XARELTO 2.5 MG PO (08:04)
[2025-04-13] MEDS: THERAGRAN 1 TABLET PO (08:04)
[2025-04-13] MEDS: TYLENOL 650 MG PO (08:04)
[2025-04-13] MEDS: ZESTRIL 10 MG PO (08:04)
[2025-04-13] MEDS: CRESTOR 5 MG PO (08:04)
[2025-04-13] MEDS: CARAFATE 1 GRAM PO (08:04)
[2025-04-13] MEDS: LOW STRENGTH ASPIRIN 81 MG PO (08:04)
[2025-04-13] MEDS: PROTONIX 40 MG PO (08:04)
[2025-04-13] MEDS: CARDIZEM CD 180 MG PO (08:04)
[2025-04-13] MEDS: XALATAN OPHTHALMIC SOLUTION 1 DROP BOTH EYES (08:05)
[2025-04-13] MEDS: ROXICODONE 10 MG PO (08:10)
[2025-04-13 11:03] VITALS: BP 143/69
--- NOTE | 2025-04-13 11:21 | W.PN.VS ---
Today's Communication / Plan
-
Seen and assessed with Dr Patrick
Assessment/Plan
-
Assessment: 79-year-old male POD #3 RIGHT common femoral artery to above-knee popliteal artery bypass with 6 mm ringed reinforced PTFE graft
Plan:
Compass protocol (xarelto and ASA) ordered and thompson checked
Home with Home health today
Subjective Data
-
Date of Service: April 13, 2025
Pt seen at bedside this am with Dr Patrick. Pt offers no complaints at this time. No events overnight.
Objective Data
-
Vital Signs
Temp Pulse Resp BP Pulse Ox
97.8 F 75 16 143/69 97
04/13/25 11:03 04/13/25 11:03 04/13/25 11:03 04/13/25 11:03 04/13/25 11:03
Intake and Output
04/12/25 04/13/25 04/14/25
06:59 06:59 06:59
Intake Total 2059 / 2059 880 / 880
Output Total 300 / 300 750 / 750
Balance 1760 / 1760 130 / 130
Intake:
Oral fluids 1979 880 / 880
IV fluids (Total) 80 / 80
Nss 1,000 ml @ 80 mls/hr IV . 80 / 80
[id number] [id number] Rx#:[id number]
Output:
Urine, [place] 300 / 300
Urine, Voided 750 / 750
Other:
Number of approximated MODERATE 1 2
amounts of urine
Number of approximated LARGE 1 1
amounts of urine
Lab Results
04/12/25 06:17
04/12/25 06:17
Calcium 8.7 mg/dl (8.4-10.2) 04/12/25 06:17
Physical Exam
-
No apparent distress, resting in bed comfortably
No tachycardia
No dyspnea on room air
ABD flat, nondistended, nontender
Right lower extremity [place] dressing clean, dry, and, intact, all compartments soft, no evidence of hematoma, Doppler DP signal, right foot warm
--- NOTE | 2025-04-13 11:28 | W.DS.TRANS ---
DC Summary - Back Roller
-
Discharge Instructions:
Discharge Diagnosis/Procedures RIGHT common femoral artery to above-knee
popliteal artery bypass with 6 mm ringed
reinforced PTFE graft
Diet As tolerated
Activity No strenuous activity
Driving Restrictions No driving for 2 weeks
Bathing Restrictions OK to Shower
Instructions:
Stand-Alone Forms: Vascular Surg Discharge Instr
Changes to Home Medications: Yes
Discharge Medications:
DC Medications w/original date entered in [facility]
diltiazem HCl 180 mg tablet,extended release 24 hr (Matzim [place]) 180 mg PO DAILY Blood Pressure 09/23/24
famotidine 40 mg tablet 40 mg PO HS Gastrointestinal Issue 09/23/24
finasteride 1 mg tablet 1 mg PO DAILY alopecia 09/23/24
hydralazine 25 mg tablet 25 mg PO DAILY PRN sbp >140 09/23/24
latanoprost 0.005 % eye drops 1 drp BOTH EYES DAILY Eye Condition 09/23/24
lisinopril 10 mg tablet 10 mg PO DAILY Blood Pressure 09/23/24
oxycodone 10 mg tablet 10 mg PO Q6H PRN pain 09/23/24
Nutra-Hair 1 cap PO DAILY Supplement 02/01/25
rosuvastatin 5 mg tablet 5 mg PO DAILY High Cholesterol 02/01/25
sucralfate 1 gram tablet 1 g PO ACHS Gastrointestinal Issue 02/03/25
multivitamin 1 tab PO DAILY Supplement 03/29/25
omeprazole magnesium 20 mg tablet,delayed release (Prilosec OTC) 40 mg PO DAILY Gastrointestinal Issue 03/29/25
trazodone 50 mg tablet 50 mg PO HS Sleep 03/29/25
aspirin 81 mg chewable tablet 81 mg PO DAILY #90 tabs 04/12/25
rivaroxaban 2.5 mg tablet (Xarelto) 2.5 mg PO BID #180 tabs 04/12/25
Home Medication Changes
Added ASA and Xarelto
Pending Results: No
--- NOTE | 2025-04-13 11:39 | CM ---
CM following re: discharge planning.
Reviewed pt's chart, met with pt.
Discharge order noted. Pt is aware, expressed his agreement and he stated his son is coming to transport home. pt stated he has a daughter and son who live in [place] and he will stay in daughter's house for couple of days and another daughter
coming from [place] to stay with him and she will help as needed.
PT and OT have been recommending home PT/OT. Pt is aware, expressed his agreement. [facility] choices given, pt preferred [facility]. A referral to [facility] made.
IMM reviewed, placed on chart, pt has a copy.
[facility] discharge instructions fax: [phone]
D/C plan: home with [facility] and family support. Son to transport.
[2025-04-13] MEDS: CARAFATE PO (12:31)
--- NOTE | 2025-04-13 12:41 | VNURNOTE ---
Home Health Liaison met with patient and son at bedside to discuss [facility] nurse/therapy, visits, schedule and homebound status. Patient is agreeable and understands that visits at home will be 2-3 x per week to assess and teach medical management.
Patient is aware that [facility] will contact them for start of care in 1-2 days after discharge from . Provided contact number for [facility].
[facility] referral completed in [facility].
== END 2025-04-13 13:07 | disposition home health service (06) | DRG 253 ==
LOC: 2 NORTH 08:43
PROVIDERS: Nurse Practitioner; ADMITTING PHYSICIAN Surgery Vascular Surgery; CONSULT PHYSICIAN Internal Medicine; PRIMARYCARE PHYSICIAN Student in an Organized Health Care Education/Training Program
PROC: 041K0JL Bypass Right Femoral Artery to Popliteal Artery with Synthetic Substitute, Open Approach (ICD-10-PCS; 2025-04-10)
DX: I73.9 Peripheral vascular disease, unspecified (principal); F11.20 Opioid dependence, uncomplicated; I10 Essential (primary) hypertension; Z79.899 Other long term (current) drug therapy; Z87.891 Personal history of nicotine dependence; G89.29 Other chronic pain; K21.9 Gastro-esophageal reflux disease without esophagitis; K29.50 Unspecified chronic gastritis without bleeding
CPT/HCPCS: 36415; 71046; 80048; 83036; 85025; 85027; 85610; 85730; 86850; 86900; 86901; 93005; 97116; 97163; 97530

== ENCOUNTER → 2025-05-23 14:48 | Outpatient (REF) | payer OTHER, SELFPAY | LOC: RAD 14:48 | PROVIDERS: ATTENDING PHYSICIAN Registered Nurse; FAMILY PHYSICIAN Student in an Organized Health Care Education/Training Program | DX: I73.9 Peripheral vascular disease, unspecified (principal) | CPT/HCPCS: 93922; 93925 ==